=== PATIENT | female | born 1970 | race American Indian/Alaskan Native ===

== ENCOUNTER 2017-02-25 11:55 | Emergency (ER) | payer MEDICARE ==
[2017-02-25 12:05] VITALS: BP 115/49
[2017-02-25 12:41] LABS: Basophils % (Auto) 0.4 % (0.0-1.8); Eosinophils % (Auto) 0.6 % (0.0-4.3); Hematocrit 41.3 % (30.3-42.9); Hemoglobin 13.8 gm/dl (10.1-14.3); Lymphocytes # (Auto) 1.7 K/mm3 (1.2-5.4); Lymphocytes % (Auto) 24.4 % (13.4-35.0); Mean Corpuscular HGB Conc 34 % (30-34); Mean Corpuscular Hemoglobin 31 pg (28-32); Mean Corpuscular Volume 93 fl (79-97); Monocytes # (Auto) 0.5 K/mm3 (0.0-0.8); Monocytes % (Auto) 7.8 % (0.0-7.3); Platelet Count 179 K/mm3 (140-440); Red Blood Count 4.45 M/mm3 (3.65-5.03); Red Cell Distribution Width 14.5 % (13.2-15.2)
[2017-02-25 12:51] LABS: BUN/Creatinine Ratio 12; Blood Urea Nitrogen 12 mg/dL (7-17); Calcium 9.3 mg/dL (8.4-10.2); Hemolysis Index 6
[2017-02-25] MEDS ORDERED: XOPENEX IH ONE (12:51)
[2017-02-25] MEDS ORDERED: ATROVENT IH ONE (12:51)
--- NOTE | 2017-02-25 12:57 | Emergency Department Report ---
ED Shortness of Breath HPI - General Chief Complaint: Dyspnea/Respdistress Stated Complaint: JOSE ARMANDO Time Seen by Provider: 02/25/17 12:45 Source: patient Mode of arrival: Stretcher Limitations: No Limitations - History of Present Illness Initial Comments: Patient is a 47 years old female history of chronic respiratory failure with tracheostomy in place. History of asthma and end-stage renal disease on hemodialysis. Patient stated that she is compliant with dialysis and she is under her average weight. Patient presented today complaining of shortness of breath and wheezing. She stated that this is like her usual asthma attack. Patient denied any fever chest pain nausea or vomiting or diarrhea. MD Complaint: shortness of breath -: This morning Consistency: constant Improves With: bronchodilators Known History Of: asthma Context: recent URI Associated Symptoms: denies other symptoms - Related Data Home Medications Medication Instructions Recorded Confirmed Last Taken Gabapentin [Neurontin] 300 mg PO TID 11/01/15 06/30/16 06/29/16 Ondansetron [Zofran TAB] 4 mg PO Q8HR 11/01/15 06/30/16 06/29/16 Quetiapine Fumarate [Seroquel] 100 mg PO BID 11/01/15 06/30/16 06/29/16 oxyCODONE /ACETAMINOPHEN [Percocet 1 tab PO Q6HR PRN 05/02/16 06/30/16 06/29/16 5/325 mg] Bumetanide [Bumetanide 2 mg tab] 2 mg PO BID 06/30/16 06/30/16 06/29/16 Cyclobenzaprine [Flexeril 10 MG 10 mg PO PRN PRN 06/30/16 06/30/16 Unknown TAB] Ergocalciferol [Vitamin D2] 1 cap PO QWEEK 06/30/16 06/30/16 06/29/16 Metoprolol [Lopressor TAB] 12.5 mg PO BID 06/30/16 06/30/16 06/29/16 Montelukast [Singulair] 10 mg PO QPM 06/30/16 06/30/16 06/29/16 Pantoprazole [Protonix TAB] 40 mg PO QDAY 06/30/16 06/30/16 06/29/16 Potassium Chloride [K-Tab ER] 20 meq PO DAILY 06/30/16 06/30/1606/29/17 amLODIPine [Norvasc] 10 mg PO DAILY 06/30/16 06/30/16 06/29/16 Previous Rx's Medication Instructions Recorded Last Taken Type Apixaban [Eliquis] 5 mg PO BID #60 tablet 07/04/16 Unknown Rx Insulin Detemir [Levemir Flextouch] 18 unit SQ BID #1 vial 07/04/16 Unknown Rx Insulin Lispro [HumaLOG VIAL] 0 units SQ AC #1 vial 07/04/16 Unknown Rx Amoxicillin [Amoxicillin TAB] 875 mg PO BID #14 tablet 12/31/16 Unknown Rx Ketorolac [Toradol] 10 mg PO Q6H PRN #20 tablet 12/31/16 Unknown Rx Allergies Allergy/AdvReac Type Severity Reaction Status Date / Time Faulkner And Derivatives Allergy Unknown Verified 02/25/17 11:04 cucumber Allergy Unknown Verified 02/25/17 11:04 orange Allergy Unknown Verified 02/25/17 11:04 tomato Allergy Unknown Verified 02/25/17 11:04 tramadol Allergy Angioedema Verified 02/25/17 11:04 ED Review of Systems ROS: Stated complaint: JOSE ARMANDO Other details as noted in HPI Comment: All other systems reviewed and negative Constitutional: denies: chills, fever Respiratory: shortness of breath, wheezing. denies: cough, orthopnea, SOB with exertion, SOB at rest, stridor Cardiovascular: denies: chest pain, palpitations, dyspnea on exertion, edema Gastrointestinal: denies: abdominal pain, nausea, vomiting, diarrhea, constipation, hematemesis Musculoskeletal: denies: back pain Neurological: denies: headache, weakness, numbness, paresthesias, confusion, abnormal gait ED Past Medical Hx - Past Medical History Hx Hypertension: Yes (x 5 yrs) Hx Congestive Heart Failure: No Hx Diabetes: Yes Hx Renal Disease: Yes (dialysis M-W-) Hx Headaches / Migraines: Yes (migraines) Hx Seizures: No Hx Asthma: Yes Hx COPD: No Hx HIV: No Additional medical history: Lupus. H1N1 virus. pvd - Surgical History Additional Surgical History: tubal ligation. trach placement. right groin- stents. permacath left chest. T & A - Social History Smoking Status: Never Smoker Substance Use Type: None - Medications Home Medications: Home Medications Medication Instructions Recorded Confirmed Last Taken Type Gabapentin [Neurontin] 300 mg PO TID 11/01/15 06/30/16 06/29/16 History Ondansetron [Zofran TAB] 4 mg PO Q8HR 11/01/15 06/30/16 06/29/16 History Quetiapine Fumarate [Seroquel] 100 mg PO BID 11/01/15 06/30/16 06/29/16 History oxyCODONE /ACETAMINOPHEN [Percocet 1 tab PO Q6HR PRN 05/02/16 06/30/16 06/29/16 History 5/325 mg] Bumetanide [Bumetanide 2 mg tab] 2 mg PO BID 06/30/16 06/30/16 06/29/16 History Cyclobenzaprine [Flexeril 10 MG 10 mg PO PRN PRN 06/30/16 06/30/16 Unknown History TAB] Ergocalciferol [Vitamin D2] 1 cap PO QWEEK 06/30/16 06/30/16 06/29/16 History Metoprolol [Lopressor TAB] 12.5 mg PO BID 06/30/16 06/30/16 06/29/16 History Montelukast [Singulair] 10 mg PO QPM 06/30/16 06/30/16 06/29/16 History Pantoprazole [Protonix TAB] 40 mg PO QDAY 06/30/16 06/30/16 06/29/16 History Potassium Chloride [K-Tab ER] 20 meq PO DAILY 06/30/16 06/30/16 06/29/16 History amLODIPine [Norvasc] 10 mg PO DAILY 06/30/16 06/30/16 06/29/16 History Apixaban [Eliquis] 5 mg PO BID #60 tablet 07/04/16 Unknown Rx Insulin Detemir [Levemir Flextouch] 18 unit SQ BID #1 vial 07/04/16 Unknown Rx Insulin Lispro [HumaLOG VIAL] 0 units SQ AC #1 vial 07/04/16 Unknown Rx Amoxicillin [Amoxicillin TAB] 875 mg PO BID #14 tablet 12/31/16 Unknown Rx Ketorolac [Toradol] 10 mg PO Q6H PRN #20 tablet 12/31/16 Unknown Rx ED Physical Exam - General Limitations: No Limitations General appearance: alert, in no apparent distress - Head Head exam: Present: atraumatic, normocephalic, normal inspection - Eye Eye exam: Present: normal appearance - ENT ENT exam: Present: normal exam - Neck Neck exam: Present: normal inspection, full ROM, other (tracheostomy in place). Absent: tenderness, meningismus, lymphadenopathy, thyromegaly - Respiratory Respiratory exam: Present: wheezes, decreased breath sounds, prolonged expiratory. Absent: respiratory distress, rales, rhonchi, stridor, accessory muscle use - Cardiovascular Cardiovascular Exam: Present: tachycardia - GI/Abdominal GI/Abdominal exam: Present: soft, normal bowel sounds. Absent: distended, tenderness, guarding, rebound, rigid, organomegaly, mass, bruit, pulsatile mass , hernia - Extremities Exam Extremities exam: Present: normal inspection, full ROM, normal capillary refill. Absent: pedal edema - Back Exam Back exam: Present: normal inspection. Absent: CVA tenderness (R), CVA tenderness (L) - Neurological Exam Neurological exam: Present: alert, oriented X3, CN II-XII intact, normal gait - Skin Skin exam: Present: warm, intact, normal color. Absent: cyanosis, diaphoretic, erythema, urticaria ED Course Vital Signs 02/25/17 12:01 Temperature 99.2 F Pulse Rate 107 H Blood Pressure 115/49 O2 Sat by Pulse 98 Oximetry - Reevaluation(s) Reevaluation #1: 02/25/17 14:16 Patient stated that she is feeling much better. On exam no wheezing. ED Medical Decision Making - Lab Data Result diagrams: 02/25/17 12:18 02/25/17 12:18 - Radiology Data Radiology results: report reviewed Referring Physician: BONNIE FRYE Patient Name: BRANDEN ODOM Date of : 1970 Sex: Female Report Date: 2017-02-25 Report Status: Finalized Findings [facility] [address] [place] [address] XRay Report Signed Patient: BRANDEN ODOM MR#: [id number] : 1970 Acct:[id number] Age/Sex: 47 / F ADM Date: 02/25/17 Loc: ED Attending Dr: Ordering Physician: BONNIE FRYE Date of Service: 02/25/17 Procedure(s): XR chest 1V ap Accession Number(s): [id number] cc: BONNIE FRYE Fluoro Time In Minutes: AP CHEST: HISTORY: Shortness of breath AP view of the chest demonstrates a normal mediastinal and cardiac contour with clear lungs and normal bony and soft tissue structures. Left subclavian venous catheter and tracheostomy are unchanged since 06/30/16. IMPRESSION: Unremarkable AP chest. Transcribed By: TTR Dictated By: KIM GIMENEZ JR, MD Electronically Authenticated By: KIM GIMENEZ JR, MD Signed Date/Time: 02/25/17 131 DD/ 1315 TD/TT: 02/25/17 1316 Critical care attestation.: If time is entered above; I have spent that time in minutes in the direct care of this critically ill patient, excluding procedure time. ED Disposition Clinical Impression: Shortness of breath, Asthma exacerbation Disposition: DC-01 TO HOME OR SELFCARE Is pt being admited?: No Condition: Stable Instructions: Asthma (ED)
--- NOTE | 2017-02-25 13:21 | XRay Report ---
AP CHEST: HISTORY: Shortness of breath AP view of the chest demonstrates a normal mediastinal and cardiac contour with clear lungs and normal bony and soft tissue structures. Left subclavian venous catheter and tracheostomy are unchanged since 06/30/16. IMPRESSION: Unremarkable AP chest.
== END 2017-02-25 15:09 | disposition home or self-care (01) ==
LOC: ED 11:55
DX: J45.901 Unspecified asthma with (acute) exacerbation (principal); R06.02 Shortness of breath; I12.0 Hypertensive chronic kidney disease with stage 5 chronic kidney disease or end stage renal disease; E11.22 Type 2 diabetes mellitus with diabetic chronic kidney disease; Z79.4 Long term (current) use of insulin; Z91.048 Other nonmedicinal substance allergy status; Z91.018 Allergy to other foods; Z88.8 Allergy status to other drugs, medicaments and biological substances
CPT/HCPCS: 36415; 71010; 80048; 85025; 93005; 93010; 94640; 96372; 99284; J2930

== ENCOUNTER 2017-02-26 06:43 | Day surgery (SDC) | payer MEDICARE ==
[~2017-02-26 06:43] MED LIST: ANCEF/STERILE WATER 2 GM/20 ML 2 GM/20 ML SYRINGE IV NR; NACL 0.9% 1000 ML 1,000 ML IV SCH; PEPCID PO NR
--- NOTE | 2017-02-26 07:43 | Anesthesia Consultation ---
Anesthesia Consult and Med Hx Date of service: 02/26/17 - Airway Anesthetic Teeth Evaluation: Poor (multiple chipped teeth, top front, upper molars), Chipped ROM Head & Neck: Adequate Mental/Hyoid Distance: Adequate Mallampati Class: Class II Intubation Access Assessment: Probably Good - Pulmonary Exam CTA: Yes - Cardiac Exam Cardiac Exam: RRR - Pre-Operative Health Status ASA Pre-Surgery Classification: ASA4 Proposed Anesthetic Plan: General - Pulmonary Hx Smoking: Yes (QUIT 1 YR AGO, 1 PPD x 20 yrs) Hx Asthma: Yes Hx Respiratory Symptoms: Yes (TRACH FOR 1 YEAR ) SOB: Yes COPD: No Hx Pneumonia: No Hx Sleep Apnea: Yes - Cardiovascular System Hx Hypertension: Yes (x 5 yrs, EF 55-60%) - Central Nervous System Hx Seizures: No CVA: No Hx Psychiatric Problems: Yes - Gastrointestinal Hx Gastroesophageal Reflux Disease: Yes - Endocrine Hx Renal Disease: Yes (dialysis , HD on Wednesday through ) Hx End Stage Renal Disease: Yes Hx Insulin Dependent Diabetes: Yes Hx Thyroid Disease: No Hx Hypothyroidism: No - Hematic Hx Anemia: No - Other Systems Hx Cancer: No Hx Obesity: Yes
--- NOTE | 2017-02-26 07:44 | Anesthesia Day of Surgery ---
Anesthesia Day of Surgery - Day of Surgery Patient Examined: Yes Patient H&P Reviewed: Yes Patient is NPO: Yes Beta Blockers: Yes
[2017-02-26 07:51] LABS: Basophils # (Auto) 0.1 K/mm3 (0.0-0.1); Basophils % (Auto) 0.7 % (0.0-1.8); Hematocrit 42.3 % (30.3-42.9); Hemoglobin 14.2 gm/dl (10.1-14.3); Lymphocytes # (Auto) 1.3 K/mm3 (1.2-5.4); Lymphocytes % (Auto) 8.6 % (13.4-35.0); Mean Corpuscular HGB Conc 34 % (30-34); Mean Corpuscular Hemoglobin 31 pg (28-32); Mean Corpuscular Volume 93 fl (79-97); Monocytes # (Auto) 0.7 K/mm3 (0.0-0.8); Monocytes % (Auto) 4.7 % (0.0-7.3); Platelet Count 215 K/mm3 (140-440); Red Blood Count 4.53 M/mm3 (3.65-5.03); Red Cell Distribution Width 14.3 % (13.2-15.2)
[2017-02-26 08:03] LABS: BUN/Creatinine Ratio 17; Blood Urea Nitrogen 17 mg/dL (7-17); Calcium 9.6 mg/dL (8.4-10.2); Hemolysis Index 51; INR 1.27 (0.87-1.13)
[2017-02-26] MEDS ORDERED: ZOFRAN IV PRN (08:04)
[2017-02-26] MEDS ORDERED: PERCOCET 5/325 PO PRN (08:04)
[2017-02-26] MEDS ORDERED: SUBLIMAZE ONE (08:15)
[2017-02-26] MEDS ORDERED: DIPRIVAN 10 MG/ML IV ONE (08:15)
[2017-02-26] MEDS: VERSED IV NR ×2 (08:24→08:47)
[2017-02-26] MEDS ORDERED: PROAIR IH ONE (08:41)
[2017-02-26] MEDS ORDERED: MARCAINE 0.5% 30 ML INFILTRATI ONE (08:53)
[2017-02-26] MEDS ORDERED: PROTAMINE SULFATE ONE (08:53)
[2017-02-26] MEDS ORDERED: HEPARIN 10,000 UNITS/10 ML ONE (08:53)
[2017-02-26] MEDS ORDERED: NACL 0.9% 500 ML 500 ML ONE (08:54)
[2017-02-26] MEDS ORDERED: PROAIR IH NR (09:00)
[2017-02-26] MEDS ORDERED: MARCAINE 0.5% INFILTRATI ONE (09:43)
[2017-02-26] MEDS ORDERED: NACL 0.9% IR ONE (09:43)
[2017-02-26] MEDS ORDERED: HEPARIN 10,000 UNITS/10 ML 4,000 UNIT in NACL 0.9% 1000 ML 1,000 ML IR ONE (09:43)
[2017-02-26] MEDS ORDERED: ZOFRAN ONE ×3 (09:51→12:00)
[2017-02-26] MEDS ORDERED: XYLOCAINE MPF 2% ONE (09:51)
--- NOTE | 2017-02-26 10:44 | Short Stay Summary ---
Short Stay Documentation Date of service: 02/26/17 Narrative H&P: See H&P - History H&P: obtained from office - Allergies and Medications Current Medications: Allergies Tensas And Derivatives Allergy (Verified 02/25/17 11:04) Unknown cucumber Allergy (Verified 02/25/17 11:04) Unknown orange Allergy (Verified 02/25/17 11:04) Unknown tomato Allergy (Verified 02/25/17 11:04) Unknown tramadol Allergy (Verified 02/25/17 11:04) Angioedema Home Medications Medication Instructions Recorded Confirmed Last Taken Type Gabapentin [Neurontin] 300 mg PO TID 11/01/15 02/26/17 02/25/17 History Ondansetron [Zofran TAB] 4 mg PO Q8HR 11/01/15 02/26/17 02/25/17 History Quetiapine Fumarate [Seroquel] 100 mg PO BID 11/01/15 02/26/17 02/25/17 History oxyCODONE /ACETAMINOPHEN [Percocet 1 tab PO Q6HR PRN 05/02/16 02/26/17 02/25/17 History 5/325 mg] Metoprolol [Lopressor TAB] 12.5 mg PO BID 06/30/16 02/26/17 3 Months Ago History ~11/27/16 Montelukast [Singulair] 10 mg PO QPM 06/30/16 02/26/17 02/25/17 History Pantoprazole [Protonix TAB] 40 mg PO QDAY 06/30/16 02/26/17 02/25/17 History Potassium Chloride [K-Tab ER] 20 meq PO DAILY 06/30/16 02/26/17 02/25/17 History amLODIPine [Norvasc] 10 mg PO DAILY 06/30/16 02/26/17 3 Months Ago History ~11/27/16 Apixaban [Eliquis] 5 mg PO BID #60 tablet 07/04/16 02/26/17 02/25/17 Rx Insulin Lispro [HumaLOG VIAL] 0 units SQ AC #1 vial 07/04/16 02/26/17 07/30/16 Rx ALBUTEROL Inhaler [Proair] 2 puff IH QID PRN 02/26/17 02/26/17 3 Days Ago History ~02/23/17 Albuterol Sulfate [Albuterol 0.63% 0.63 mg IH ONCE 02/26/17 02/26/17 02/25/17 History NEBS] Fluticasone/Salmeterol [Advair 1 puff INHALATION BID 02/26/17 02/26/17 02/25/17 History 250-50 Diskus] Furosemide [Lasix] 80 mg PO TID 02/26/17 02/26/17 02/25/17 History Insulin Detemir [Levemir Flextouch] 12 unit SQ BID 02/26/17 02/26/17 07/30/16 History guaiFENesin [Mucinex] 400 mg PO BID 02/26/17 02/26/17 02/25/17 History Active Medications Albuterol (Proair) 2 puff IH PREOP NR Stop: 02/26/17 12:00 Last Admin: 02/26/17 08:43 Dose: 2 puff Famotidine (Pepcid) 20 mg PO PREOP NR Stop: 02/26/17 23:59 Last Admin: 02/26/17 07:51 Dose: 20 mg Cefazolin Sodium (Ancef/Sterile Water 2 Gm/20 Ml) 2 gm in 20 mls @ 80 mls/hr IV PREOP NR PRN Reason: Protocol Stop: 02/26/17 23:59 Sodium Chloride (Nacl 0.9% 1000 Ml) 1,000 mls @ 42 mls/hr IV DIRECT DESTIN Last Admin: 02/26/17 07:54 Dose: 42 mls/hr Midazolam HCl (Versed) 2 mg IV PREOP NR Stop: 02/26/17 23:59 Last Admin: 02/26/17 08:47 Dose: 1 mg Morphine Sulfate (Morphine) 2 mg IV Q10MIN PRN PRN Reason: Pain, Moderate (4-6) Stop: 02/26/17 12:00 Ondansetron HCl (Zofran) 4 mg IV ONCE PRN PRN Reason: Nausea And Vomiting Stop: 02/26/17 11:00 - Brief post op/procedure progress note Date of procedure: 02/26/17 Pre-op diagnosis: Complications of Dialysis Access Post-op diagnosis: same Procedure: Revision with Elevation of Left Brachiocephalic Arteriovenous Fistula Anesthesia: GETA Surgeon: LORENZO MOORE Estimated blood loss: 50-100ml Pathology: none Condition: stable - Disposition Condition at discharge: Good Disposition: DC-01 TO HOME OR SELFCARE Short Stay Discharge Plan Activity: other (no heavy lifting with left arm) Wound: open to air, keep clean and dry, other (okay to wash the wound with soap and water but do not soak in water) Follow up with: LORENZO MOORE MD [Staff Physician] - 14 Days Prescriptions: HYDROcodone/APAP 7.5-325 [[place] 7.5/325] 1 each PO Q6HR PRN #40 tablet PRN Reason: Pain
--- NOTE | 2017-02-26 10:50 | Post Anesthesia Evaluation ---
- Post Anesthesia Evaluation Patient Participated: Yes Airway Patent: Yes Stable Respiratory Function: Yes Nausea/Vomiting: No Temp > 96.8F: Yes Pain Manageable: Yes Adequeate Hydration: Yes Anesthesia Complications: No Block Receding Appropriately: Not Applicable Patient on Ventilator: No Other Comments: Trach in place. Oxygenation and respirations normal.
--- NOTE | 2017-02-26 10:51 | Operative Report ---
Operative Report Operative Report: Date of Procedure: 02/26/2017 Pre-operative Diagnosis: Complications of Dialysis Access Post-operative Diagnosis: Same Procedure(s): 1. Revision with Elevation of Left Brachiocephalic Arteriovenous Fistula Surgeon: Torito Floyd M.D. Barytes Grinder: None Anesthesia: Gen. Endotracheal Anesthesia EBL: 100 mL Counts: Correct Complications: None Condition: Stable Findings: Successful revision with elevation of left brachiocephalic fistula with palpable thrill at the completion of the case. Specimen: None Indication: The patient is a 47-year-old female with a history of end-stage renal disease who has a left brachiocephalic arteriovenous fistula that is too deep to access. She is in need of revision with elevation of the fistula. She was given the risks, benefits, and alternative procedures and consented to the procedure. Description of Procedure: The patient was brought into the operating room and laid in supine position. After general endotracheal anesthesia was achieved her left arm was prepped and draped in normal sterile fashion. A longitudinal incision was created over the fistula and and carried down to the fistula using sharp dissection. The fissure was dissected circumferentially all side branches were dissected and suture ligated and divided. At this point the wound was then anesthetized with Marcaine. A subcutaneous pocket was created along the lateral edge of the incision just below the dermis. Hemostasis within the wound was achieved with quick clot. Once hemostasis was achieved the fistula was placed within the previously created subcutaneous pocket. The wound was then closed in 2 layers, ensuring that the fistula stay within the subcutaneous pocket, using a 3-0 Vicryl and running fashion in the deep dermal layer, and a 4-0 Monocryl in running fashion and the subcuticular. The skin was then dressed with Dermabond. The patient tolerated the procedure well. All sponge, needle comminution counts were correct. The patient was taken to the recovery area in stable condition.
[2017-02-26] MEDS: MORPHINE IV PRN ×2 (11:10→11:30)
[2017-02-26] MEDS ORDERED: PERCOCET 5/325 ONE (12:09)
[2017-02-26 18:56] VITALS: BP 110/69
== END 2017-02-26 13:38 | disposition home or self-care (01) ==
LOC: OR 06:43
PROVIDERS: ATTEND Surgery Vascular Surgery
DX: T82.590A Other mechanical complication of surgically created arteriovenous fistula, initial encounter (principal); I25.10 Atherosclerotic heart disease of native coronary artery without angina pectoris; I25.2 Old myocardial infarction; I12.0 Hypertensive chronic kidney disease with stage 5 chronic kidney disease or end stage renal disease; E11.22 Type 2 diabetes mellitus with diabetic chronic kidney disease; N18.6 End stage renal disease; J44.9 Chronic obstructive pulmonary disease, unspecified; K21.9 Gastro-esophageal reflux disease without esophagitis; F41.9 Anxiety disorder, unspecified; M19.90 Unspecified osteoarthritis, unspecified site; G47.33 Obstructive sleep apnea (adult) (pediatric); G43.909 Migraine, unspecified, not intractable, without status migrainosus; E66.9 Obesity, unspecified; Z68.36 Body mass index [BMI] 36.0-36.9, adult; Z79.84 Long term (current) use of oral hypoglycemic drugs; Z98.890 Other specified postprocedural states; Z88.6 Allergy status to analgesic agent; Z91.018 Allergy to other foods; Z87.891 Personal history of nicotine dependence; Y83.2 Surgical operation with anastomosis, bypass or graft as the cause of abnormal reaction of the patient, or of later complication, without mention of misadventure at the time of the procedure
CPT/HCPCS: 36415; 36832; 80048; 81025; 82962; 85025; 85610; J0690; J1644; J2250; J2270; J2405; J2704; J2720; J3010; J7030; J7040; J1815

== ENCOUNTER 2017-04-20 14:12 | Emergency (ER) | payer MEDICARE ==
[2017-04-20 15:11] LABS: Basophils # (Auto) 0.1 K/mm3 (0.0-0.1); Basophils % (Auto) 0.8 % (0.0-1.8); Eosinophils % (Auto) 0.5 % (0.0-4.3); Hematocrit 38.3 % (30.3-42.9); Hemoglobin 12.9 gm/dl (10.1-14.3); Lymphocytes # (Auto) 1.8 K/mm3 (1.2-5.4); Lymphocytes % (Auto) 21.4 % (13.4-35.0); Mean Corpuscular HGB Conc 34 % (30-34); Mean Corpuscular Hemoglobin 31 pg (28-32); Mean Corpuscular Volume 90 fl (79-97); Monocytes # (Auto) 0.6 K/mm3 (0.0-0.8); Monocytes % (Auto) 7.6 % (0.0-7.3); Platelet Count 208 K/mm3 (140-440); Red Blood Count 4.24 M/mm3 (3.65-5.03); Red Cell Distribution Width 13.3 % (13.2-15.2)
--- NOTE | 2017-04-20 15:22 | XRay Report ---
AP CHEST: HISTORY: Difficulty in breathing Tracheostomy and left venous catheter are in adequate position. AP view of the chest demonstrates a normal mediastinal and cardiac contour with clear lungs and normal bony and soft tissue structures. No significant change since 03/12/17. IMPRESSION: No acute cardiopulmonary process.
[2017-04-20 15:29] LABS: Calcium 9.1 mg/dL (8.4-10.2)
--- NOTE | 2017-04-20 15:47 | Emergency Department Report ---
HPI - General Chief Complaint: Dyspnea/Respdistress Time Seen by Provider: 04/20/17 15:31 - HPI HPI: Room 6 The patient is a 47-year-old female presenting with chief complaint of shortness of breath. The patient states she was in her usual state of health last night's morning she noticed secretions in her trach but was unable to remove them. EMS was called and brought to the ED. Patient states in the ED she was suctioned and now feels better. Patient denied chest pain or fever. Patient states she's felt "sluggish" for the past 4 days Location: Trach/lungs Duration: [See above] Quality: Short of breath Severity: moderate Modifying factors: [see above] Context: [see above] Mode of transportation: [not driving] ED Past Medical Hx - Past Medical History Previous Medical History?: Yes Hx Hypertension: Yes (x 5 yrs, EF 55-60%) Hx Diabetes: Yes Hx GERD: Yes Hx Renal Disease: Yes (dialysis , HD on Wednesday through [facility]) Hx Arthritis: Yes (ALL JOINTS) Hx Headaches / Migraines: Yes (migraines) Hx Asthma: Yes Additional medical history: Lupus. H1N1 virus. pvd - Surgical History Past Surgical History?: Yes Additional Surgical History: tubal ligation. trach placement during treatment for H1 N1. right groin-stents. permacath left chest. T & A. fistula to LUE - Family History Family history: no significant - Social History Smoking Status: Never Smoker Substance Use Type: None - Medications Home Medications: Home Medications Medication Instructions Recorded Confirmed Last Taken Type Gabapentin [Neurontin] 300 mg PO TID 11/01/15 03/12/17 03/11/17 History Ondansetron [Zofran TAB] 4 mg PO Q8HR 11/01/15 03/12/17 03/11/17 History Quetiapine Fumarate [Seroquel] 100 mg PO BID 11/01/15 03/12/17 03/11/17 History oxyCODONE /ACETAMINOPHEN [Percocet 1 tab PO Q6HR PRN 05/02/16 03/12/17 03/11/17 History 5/325 mg] Metoprolol [Lopressor TAB] 12.5 mg PO BID 06/30/16 03/12/17 03/11/17 History Montelukast [Singulair] 10 mg PO QPM 06/30/16 03/12/17 03/11/17 History Pantoprazole [Protonix TAB] 40 mg PO QDAY 06/30/16 03/12/17 03/11/17 History Potassium Chloride [K-Tab ER] 20 meq PO BID 06/30/16 03/12/17 03/11/17 History amLODIPine [Norvasc] 10 mg PO DAILY 06/30/16 03/12/17 03/11/17 History Apixaban [Eliquis] 5 mg PO BID #60 tablet 07/04/16 03/12/17 03/11/17 Rx Insulin Lispro [HumaLOG VIAL] 0 units SQ AC #1 vial 07/04/16 03/12/17 03/11/17 Rx Furosemide [Lasix] 80 mg PO TID 02/26/17 03/12/17 03/11/17 History Insulin Detemir [Levemir Flextouch] 12 unit SQ BID 02/26/17 03/12/17 03/11/17 History guaiFENesin [Mucinex] 400 mg PO BID 02/26/17 03/12/17 03/11/17 History ALBUTEROL Inhaler [ProAir HFA 2 puff IH QID PRN #1 inha 03/14/17 Unknown Rx Inhaler] Albuterol Sulfate [Albuterol 0.63% 0.63 mg IH QID #90 vial.neb 03/14/17 Unknown Rx NEBS] Azithromycin [Zithromax TAB] 500 mg PO QDAY #4 tablet 03/14/17 Unknown Rx Fluticasone/Salmeterol [Advair 1 puff INHALATION BID #1 blst.w.dev 03/14/17 Unknown Rx 250-50 Diskus] Nebulizer [Compact Ultrasonic 1 each MC QID #1 each 03/14/17 Unknown Rx Nebulizer] Prednisone [predniSONE 10 mg 10 mg PO .TAPER #1 tab.ds.pk 03/14/17 Unknown Rx (6-Day Pack, 21 Tabs)] Azithromycin [Zithromax Z-JEANNIE] 0 mg PO DAILY #6 tab 04/20/17 Unknown Rx guaiFENesin [Child Mucinex Chest 200 mg PO Q4H #200 ml 04/20/17 Unknown Rx Congestion] ED Review of Systems ROS: Stated complaint: JOSE ARMANDO Other details as noted in HPI Constitutional: malaise. denies: fever Respiratory: shortness of breath Cardiovascular: denies: chest pain Physical Exam - Physical Exam Vital Signs: Vital Signs 04/20/17 14:35 Temperature 98.9 F Pulse Rate 116 H Respiratory 20 Rate Blood Pressure 107/50 O2 Sat by Pulse 97 Oximetry Physical Exam: GENERAL: The patient is well-developed well-nourished female lying on stretcher not appearing to be in acute distress. [] HEENT: Normocephalic. Atraumatic. Extraocular motions are intact. Patient has moist mucous membranes. NECK: Supple. Trachea in place CHEST/LUNGS: Clear to auscultation. There is no respiratory distress noted. HEART/CARDIOVASCULAR: Regular. There is no tachycardia. There is no gallop rub or murmur. ABDOMEN: Abdomen is soft, nontender. Patient has normal bowel sounds. There is no abdominal distention. SKIN: There is no rash. There is no edema. There is no diaphoresis. NEURO: The patient is awake, alert, and oriented. The patient is cooperative. The patient has normal speech MUSCULOSKELETAL: There is no evidence of acute injury. ED Course Vital Signs 04/20/17 14:35 Temperature 98.9 F Pulse Rate 116 H Respiratory 20 Rate Blood Pressure 107/50 O2 Sat by Pulse 97 Oximetry - Reevaluation(s) Reevaluation #1: 04/20/17 16:08 SPO2 98% on 2 L ED Medical Decision Making - Lab Data Result diagrams: 04/20/17 14:52 04/20/17 14:52 Laboratory Tests 04/20/17 04/20/17 14:52 14:52 WBC 8.4 RBC 4.24 Hgb 12.9 Hct 38.3 MCV 90 MCH 31 MCHC 34 RDW 13.3 Plt Count 208 Lymph % (Auto) 21.4 Harvey % (Auto) 7.6 H Eos % (Auto) 0.5 Baso % (Auto) 0.8 Lymph # 1.8 Harvey # 0.6 Eos # 0.0 Baso # 0.1 Seg Neutrophils % 69.7 Seg Neutrophils # 5.9 Sodium 131 L Potassium 3.0 L Chloride 85.7 L Carbon Dioxide 29 Anion Gap 19 BUN 26 H Creatinine 2.5 H Estimated GFR 25 BUN/Creatinine Ratio 10 Glucose 424 H Calcium 9.1 - Radiology Data Radiology results: report reviewed (chest x-ray), image reviewed (chest x-ray) interpreted by me: Chest x-ray-no definite focal infiltrates, no pneumothorax AP CHEST: HISTORY: Difficulty in breathing Tracheostomy and left venous catheter are in adequate position. AP view of the chest demonstrates a normal mediastinal and cardiac contour with clear lungs and normal bony and soft tissue structures. No significant change since 03/12/17. IMPRESSION: No acute cardiopulmonary process. Transcribed By: TTR Dictated By: KIM GIMENEZ JR, MD Electronically Authenticated By: KIM GIMENEZ JR, MD Signed Date/Time: 04/20/171514 DD/ 13 TD/TT: 04/20/171514 - Differential Diagnosis mucous plug Critical care attestation.: If time is entered above; I have spent that time in minutes in the direct care of this critically ill patient, excluding procedure time. ED Disposition Clinical Impression: Mucus plugging of bronchi, Shortness of breath, Bronchitis Disposition: DC-01 TO HOME OR SELFCARE Is pt being admited?: No Does the pt Need Aspirin: No Condition: Stable Instructions: Acute Bronchitis (ED) Additional Instructions: Return to the emergency department immediately should you develop worsening symptoms, fever, inability to tolerate food or liquid or any other concerns. Prescriptions: Azithromycin [Zithromax Z-JEANNIE] 0 mg PO DAILY #6 tab guaiFENesin [Child Mucinex Chest Congestion] 200 mg PO Q4H #200 ml Referrals: POORNIMA MINA MD [Staff Physician] - 3-5 Days Time of Disposition: 16:11
[2017-04-20 18:11] VITALS: BP 131/50
== END 2017-04-20 18:12 | disposition home or self-care (01) ==
LOC: ED 14:12
DX: J40 Bronchitis, not specified as acute or chronic (principal); R06.02 Shortness of breath; J98.09 Other diseases of bronchus, not elsewhere classified; E11.22 Type 2 diabetes mellitus with diabetic chronic kidney disease; I12.0 Hypertensive chronic kidney disease with stage 5 chronic kidney disease or end stage renal disease; M19.90 Unspecified osteoarthritis, unspecified site; G43.909 Migraine, unspecified, not intractable, without status migrainosus; J45.909 Unspecified asthma, uncomplicated; Z79.4 Long term (current) use of insulin; Z91.018 Allergy to other foods; Z88.8 Allergy status to other drugs, medicaments and biological substances
CPT/HCPCS: 36415; 71045; 80048; 85025; 93005; 93010

== ENCOUNTER 2017-05-15 11:16 | Emergency (ER) | payer MEDICARE ==
[2017-05-15 16:03] LABS: Albumin 4.1 g/dL (3.9-5); BUN/Creatinine Ratio 16; Blood Urea Nitrogen 18 mg/dL (7-17); Calcium 9.1 mg/dL (8.4-10.2); Hemolysis Index 181
[2017-05-15 16:09] LABS: Basophils % (Auto) 0.4 % (0.0-1.8); Eosinophils # (Auto) 0.1 K/mm3 (0.0-0.4); Eosinophils % (Auto) 1.2 % (0.0-4.3); Hematocrit 36.8 % (30.3-42.9); Hemoglobin 12.2 gm/dl (10.1-14.3); Lymphocytes # (Auto) 1.8 K/mm3 (1.2-5.4); Lymphocytes % (Auto) 27.2 % (13.4-35.0); Mean Corpuscular HGB Conc 33 % (30-34); Mean Corpuscular Hemoglobin 30 pg (28-32); Mean Corpuscular Volume 91 fl (79-97); Monocytes # (Auto) 0.5 K/mm3 (0.0-0.8); Platelet Count 226 K/mm3 (140-440); Red Blood Count 4.04 M/mm3 (3.65-5.03); Red Cell Distribution Width 13.3 % (13.2-15.2)
--- NOTE | 2017-05-15 16:38 | Emergency Department Report ---
ED Shortness of Breath HPI - General Chief Complaint: Dyspnea/Respdistress Stated Complaint: DIFFICULTY BREATHING Time Seen by Provider: 05/15/17 16:15 Source: patient Mode of arrival: Stretcher Limitations: No Limitations - History of Present Illness Initial Comments: Patient is 47 years old female end-stage renal disease on hemodialysis, hypertension, diabetes, history of acute respiratory failure with tracheostomy placement after H1 and 1 influenza. Patient presented to the ER in acute respiratory distress after mucous plug obstructing tracheostomy tube. Patient is tachypneic with difficulty breathing. Mucous plug was suctioned, patient is feeling much better now. She denied any chest pain or shortness of breath at this moment. MD Complaint: shortness of breath -: Sudden - Related Data Home Medications Medication Instructions Recorded Confirmed Last Taken Gabapentin [Neurontin] 300 mg PO TID 11/01/15 03/12/17 03/11/17 Ondansetron [Zofran TAB] 4 mg PO Q8HR 11/01/15 03/12/17 03/11/17 Quetiapine Fumarate [Seroquel] 100 mg PO BID 11/01/15 03/12/17 03/11/17 oxyCODONE /ACETAMINOPHEN [Percocet 1 tab PO Q6HR PRN 05/02/16 03/12/17 03/11/17 5/325 mg] Metoprolol [Lopressor TAB] 12.5 mg PO BID 06/30/16 03/12/17 03/11/17 Montelukast [Singulair] 10 mg PO QPM 06/30/16 03/12/17 03/11/17 Pantoprazole [Protonix TAB] 40 mg PO QDAY 06/30/16 03/12/17 03/11/17 Potassium Chloride [K-Tab ER] 20 meq PO BID 06/30/16 03/12/17 03/11/17 amLODIPine [Norvasc] 10 mg PO DAILY 06/30/16 03/12/17 03/11/17 Furosemide [Lasix] 80 mg PO TID 02/26/17 03/12/17 03/11/17 Insulin Detemir [Levemir Flextouch] 12 unit SQ BID 02/26/17 03/12/17 03/11/17 guaiFENesin [Mucinex] 400 mg PO BID 02/26/17 03/12/17 03/11/17 Previous Rx's Medication Instructions Recorded Last Taken Type Apixaban [Eliquis] 5 mg PO BID #60 tablet 07/04/16 03/11/17 Rx Insulin Lispro [HumaLOG VIAL] 0 units SQ AC #1 vial 07/04/16 03/11/17 Rx ALBUTEROL Inhaler [ProAir HFA 2 puff IH QID PRN #1 inha 03/14/17 Unknown Rx Inhaler] Albuterol Sulfate [Albuterol 0.63% 0.63 mg IH QID #90 vial.neb 03/14/17 Unknown Rx NEBS] Azithromycin [Zithromax TAB] 500 mg PO QDAY #4 tablet 03/14/17 Unknown Rx Fluticasone/Salmeterol [Advair 1 puff INHALATION BID #1 blst.w.dev 03/14/17 Unknown Rx 250-50 Diskus] Nebulizer [Compact Ultrasonic 1 each MC QID #1 each 03/14/17 Unknown Rx Nebulizer] Prednisone [predniSONE 10 mg 10 mg PO .TAPER #1 tab.ds.pk 03/14/17 Unknown Rx (6-Day Pack, 21 Tabs)] Azithromycin [Zithromax Z-JEANNIE] 0 mg PO DAILY #6 tab 04/20/17 Unknown Rx guaiFENesin [Child Mucinex Chest 200 mg PO Q4H #200 ml 04/20/17 Unknown Rx Congestion] Allergies Allergy/AdvReac Type Severity Reaction Status Date / Time [place] And Derivatives Allergy Unknown Verified 03/12/17 09:12 cucumber Allergy Unknown Verified 03/12/17 09:12 orange Allergy Unknown Verified 03/12/17 09:12 tomato Allergy Unknown Verified 03/12/17 09:12 tramadol Allergy Angioedema Verified 03/12/17 09:12 ED Review of Systems ROS: Stated complaint: DIFFICULTY BREATHING Other details as noted in HPI Comment: All other systems reviewed and negative Constitutional: denies: chills, fever Respiratory: denies: cough, shortness of breath Cardiovascular: denies: chest pain, palpitations Gastrointestinal: denies: abdominal pain, nausea, vomiting ED Past Medical Hx - Past Medical History Hx Hypertension: Yes (x 5 yrs, EF 55-60%) Hx Congestive Heart Failure: No Hx Diabetes: Yes Hx GERD: Yes Hx Renal Disease: Yes (dialysis -W-F, HD on Wednesday through [facility]) Hx Arthritis: Yes (ALL JOINTS) Hx Headaches / Migraines: Yes (migraines) Hx Seizures: No Hx Asthma: Yes Hx COPD: No Hx HIV: No Additional medical history: Lupus. H1N1 virus. pvd - Surgical History Additional Surgical History: tubal ligation. trach placement during treatment for H1 N1. right groin-stents. permacath left chest. T & A. fistula to LUE - Social History Smoking Status: Never Smoker Substance Use Type: None - Medications Home Medications: Home Medications Medication Instructions Recorded Confirmed Last Taken Type Gabapentin [Neurontin] 300 mg PO TID 11/01/15 03/12/17 03/11/17 History Ondansetron [Zofran TAB] 4 mg PO Q8HR 11/01/15 03/12/17 03/11/17 History Quetiapine Fumarate [Seroquel] 100 mg PO BID 11/01/15 03/12/17 03/11/17 History oxyCODONE /ACETAMINOPHEN [Percocet 1 tab PO Q6HR PRN 05/02/16 03/12/17 03/11/17 History 5/325 mg] Metoprolol [Lopressor TAB] 12.5 mg PO BID 06/30/16 03/12/17 03/11/17 History Montelukast [Singulair] 10 mg PO QPM 06/30/16 03/12/17 03/11/17 History Pantoprazole [Protonix TAB] 40 mg PO QDAY 06/30/16 03/12/17 03/11/17 History Potassium Chloride [K-Tab ER] 20 meq PO BID 06/30/16 03/12/17 03/11/17 History amLODIPine [Norvasc] 10 mg PO DAILY 06/30/16 03/12/17 03/11/17 History Apixaban [Eliquis] 5 mg PO BID #60 tablet 07/04/16 03/12/17 03/11/17 Rx Insulin Lispro [HumaLOG VIAL] 0 units SQ AC #1 vial 07/04/16 03/12/17 03/11/17 Rx Furosemide [Lasix] 80 mg PO TID 02/26/17 03/12/17 03/11/17 History Insulin Detemir [Levemir Flextouch] 12 unit SQ BID 02/26/17 03/12/17 03/11/17 History guaiFENesin [Mucinex] 400 mg PO BID 02/26/17 03/12/17 03/11/17 History ALBUTEROL Inhaler [ProAir HFA 2 puff IH QID PRN #1 inha 03/14/17 Unknown Rx Inhaler] Albuterol Sulfate [Albuterol 0.63% 0.63 mg IH QID #90 vial.neb 03/14/17 Unknown Rx NEBS] Azithromycin [Zithromax TAB] 500 mg PO QDAY #4 tablet 03/14/17 Unknown Rx Fluticasone/Salmeterol [Advair 1 puff INHALATION BID #1 blst.w.dev 03/14/17 Unknown Rx 250-50 Diskus] Nebulizer [Compact Ultrasonic 1 each MC QID #1 each 03/14/17 Unknown Rx Nebulizer] Prednisone [predniSONE 10 mg 10 mg PO .TAPER #1 tab.ds.pk 03/14/17 Unknown Rx (6-Day Pack, 21 Tabs)] Azithromycin [Zithromax Z-JEANNIE] 0 mg PO DAILY #6 tab 04/20/17 Unknown Rx guaiFENesin [Child Mucinex Chest 200 mg PO Q4H #200 ml 04/20/17 Unknown Rx Congestion] ED Physical Exam - General Limitations: No Limitations General appearance: alert, in no apparent distress - Head Head exam: Present: atraumatic, normocephalic - Eye Eye exam: Present: normal appearance, PERRL - ENT ENT exam: Present: normal exam, normal orophraynx, mucous membranes moist - Neck Neck exam: Present: normal inspection, other (tracheostomy in place clearand at this moment.) - Respiratory Respiratory exam: Present: normal lung sounds bilaterally. Absent: respiratory distress, chest wall tenderness - Cardiovascular Cardiovascular Exam: Present: regular rate, normal rhythm, normal heart sounds - GI/Abdominal GI/Abdominal exam: Present: soft, normal bowel sounds. Absent: distended, tenderness, guarding, rebound, rigid, organomegaly, mass, bruit, pulsatile mass - Extremities Exam Extremities exam: Present: normal inspection, full ROM, normal capillary refill - Back Exam Back exam: Present: normal inspection, full ROM. Absent: tenderness, CVA tenderness (R), CVA tenderness (L), muscle spasm, paraspinal tenderness - Neurological Exam Neurological exam: Present: alert, oriented X3, CN II-XII intact, normal gait - Skin Skin exam: Present: warm, intact, normal color ED Course Vital Signs 05/15/17 05/15/17 12:23 12:50 Temperature 97.8 F Pulse Rate 123 H Respiratory 26 H 22 Rate Blood Pressure 114/56 O2 Sat by Pulse 97 96 Oximetry - Reevaluation(s) Reevaluation #1: 05/15/17 18:58 Patient observed in the ER, she stated that she is feeling much better, no shortness of breath or difficulty breathing any more. Tracheostomy tube is patent. Patient advised to follow-up with her primary care physician in the next 2-3 days. ED Medical Decision Making - Lab Data Result diagrams: 05/15/17 15:36 05/15/17 15:36 Critical care attestation.: If time is entered above; I have spent that time in minutes in the direct care of this critically ill patient, excluding procedure time. ED Disposition Clinical Impression: Airway obstruction, Tracheostomy malfunction Disposition: - TO HOME OR SELFCARE Is pt being admited?: No Condition: Stable Instructions: Tracheostomy Care (ED) Referrals: PRIMARY CARE, [Primary Care Provider] - 3-5 Days
[2017-05-15 16:45] LABS: Alanine Aminotransferase 15 units/L (7-56)
[2017-05-15 19:12] VITALS: BP 134/77
--- NOTE | 2017-05-17 11:13 | XRay Report ---
FINAL REPORT EXAM: XR CHEST ROUTINE 2V HISTORY: Foreign Body Mucus Plug TECHNIQUE: Frontal and lateral chest radiographs. PRIORS: Chest CT from 08/13/2015. FINDINGS: A tracheostomy tube is seen with the tip projecting in the upper thoracic trachea. The cardiomediastinal silhouette is normal. No focal consolidation. The lungs appear symmetrically inflated. No evidence of mucous plugging. No pleural effusion. No pneumothorax. No acute osseous abnormality. IMPRESSION: No acute cardiopulmonary process. No evidence of mucous plugging.
== END 2017-05-15 19:10 | disposition home or self-care (01) ==
LOC: ED 11:16
DX: J95.03 Malfunction of tracheostomy stoma (principal); J98.8 Other specified respiratory disorders; I10 Essential (primary) hypertension; K21.9 Gastro-esophageal reflux disease without esophagitis; J45.909 Unspecified asthma, uncomplicated
CPT/HCPCS: 36415; 71046; 80053; 82962; 84484; 85025; 85379

== ENCOUNTER 2017-05-27 18:33 | Emergency (ER) | payer MEDICARE ==
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
[2017-05-27] MEDS ORDERED: TYLENOL PO ONE (21:51)
[2017-05-27] MEDS ORDERED: FLEXERIL PO ONE (21:51)
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
[2017-05-28 00:20] VITALS: BP 123/69
== END 2017-05-27 22:40 | disposition home or self-care (01) ==
LOC: ED 18:33
DX: S13.4XXA Sprain of ligaments of cervical spine, initial encounter (principal); I12.9 Hypertensive chronic kidney disease with stage 1 through stage 4 chronic kidney disease, or unspecified chronic kidney disease; E11.22 Type 2 diabetes mellitus with diabetic chronic kidney disease; N18.6 End stage renal disease; Z99.2 Dependence on renal dialysis; M32.9 Systemic lupus erythematosus, unspecified; I73.9 Peripheral vascular disease, unspecified; J45.909 Unspecified asthma, uncomplicated; M19.90 Unspecified osteoarthritis, unspecified site; Z98.51 Tubal ligation status; Z91.018 Allergy to other foods; V89.2XXA Person injured in unspecified motor-vehicle accident, traffic, initial encounter
CPT/HCPCS: 70450; 72125; 99283